=== PATIENT | male | born 1970 | race Caucasian/White ===

== ENCOUNTER 2017-09-19 18:06 | Inpatient (IN) | payer MEDICAID ==
[~2017-09-19] VITALS: Ht 170.2 cm; Wt 77.1 kg
[2017-09-19 18:11] VITALS: BP 184/102
--- NOTE | 2017-09-19 18:17 | NUR ---
PT AMBULATED TO CHAIR C
--- NOTE | 2017-09-19 18:34 | NUR ---
EPIGASTRIC PAIN AND N/V X 3 DAYS. SKIN IS PINK/WARM/DRY; AAOX4 WITH EVEN AND STEADY GAIT; LUNGS CLEAR BL; HR EVEN AND REGULAR; PT DENIES ANY FEVER, CP, SOB, OR COUGH AT THIS TIME; PATIENT STATES PAIN OF 9/10 AT THIS TIME; VSS; ER MD MADE AWARE OF PT STATUS.
--- NOTE | 2017-09-19 19:00 | NUR ---
RECEIVED REPORT FROM MILAN HURLEY. TRANSFER OF CARE AT THIS TIME.
--- NOTE | 2017-09-19 19:53 | NUR ---
Dr. Telles evaluating patient.
[2017-09-19] MEDS ORDERED: ONDANSETRON 4 MG/2 ML VIAL IVP ONE (20:00)
[2017-09-19] MEDS ORDERED: MORPHINE SULFATE 2 MG/ML SYR IVP ONE (20:00)
--- NOTE | 2017-09-19 20:17 | NUR ---
PT TAKEN TO CT
[2017-09-19 20:31] LABS: HEMOGLOBIN 17.5 g/dL (12.0-18.0); MEAN CORPUSCULAR HEMOGLOBIN 29 pg (27-31); MEAN CORPUSCULAR HGB CONC 33 g/dL (33-37); MEAN CORPUSCULAR VOLUME 88 fL (80-94); PLATELET COUNT (AUTO) 228 K/uL (140-450); RED BLOOD CELL COUNT(AUTO) 6.01 MIL/uL (4.20-6.10); RED CELL DISTRIBUTION WIDTH 11.8 % (11.6-13.7); WHITE BLOOD COUNT (AUTO) 20.6 K/uL (4.8-10.8)
[2017-09-19] MEDS ORDERED: ONDANSETRON 4 MG/2 ML VIAL ONE (20:41)
[2017-09-19 20:42] LABS: CARBON DIOXIDE 27.4 mmol/L (21-32); CREATININE 0.9 mg/dL (0.7-1.3); POTASSIUM 4.4 mmol/L (3.5-5.1)
[2017-09-19 20:43] LABS: APPEARANCE,URINE CLEAR (CLEAR); BILIRUBIN,URINE 1+ (NEGATIVE); BLOOD, URINE 1+ (NEGATIVE); COLOR,URINE YELLOW (YELLOW); LEUKOCYTE ESTERASE ,URINE NEGATIVE (NEGATIVE); NITRITE, URINE NEGATIVE (NEGATIVE); UGLUCOSE TRACE (NEGATIVE)
[2017-09-19 20:46] LABS: LYMPHOCYTES % (MANUAL) 2 % (20-46); MONOCYTES % (MANUAL) 8 % (5-12)
[2017-09-19 20:48] LABS: ALBUMIN 4.1 g/dL (3.4-5.0); TOTAL BILIRUBIN 2.4 mg/dL (0.0-1.0)
[2017-09-19 20:53] LABS: RBC,URINE 11-20 (MOD) /HPF (0-5); WBC,URINE 0-5 (RARE) /HPF (0-5)
--- NOTE | 2017-09-19 22:00 | NUR ---
PATIENT RESTING AT THIS TIME. SITTING IN CHAIR.
[2017-09-19] MEDS ORDERED: PIPERACILLIN/TAZOBACTAM 4.5 GM in DEXTROSE 5% 100 ML IV ONE (22:05)
[2017-09-19] MEDS ORDERED: PIPERACILLIN/TAZOBACTAM 2.25 GM VIAL IV ONE ×2 (22:09→22:11)
[2017-09-19] MEDS ORDERED: NACL 0.9% 3,000 ML IV ONE (22:10)
--- NOTE | 2017-09-19 23:11 | NUR ---
PT MOVED TO BED 10
[2017-09-19] MEDS ORDERED: ONDANSETRON 4 MG/2 ML VIAL IVP PRN (23:15)
[2017-09-19] MEDS ORDERED: LORazepam 2 MG/ML VIAL IVP PRN (23:15)
[2017-09-20] VITALS (11 sets, daily range): BP systolic 142–169; BP diastolic 91–100
[2017-09-20] MEDS ORDERED: HYDROmorphone PFS 2 MG/ML SYR ONE (00:04)
[2017-09-20] MEDS ORDERED: HYDROmorphone 1 MG/ML AMP IVP ONE (00:05)
--- NOTE | 2017-09-20 00:10 | NUR ---
PT ARRIVED VIA WHEELCHAIR FROM ER, PT AMBULATED TO BED, TOLERATED WELL, NO DISTRESS NOTED, IV TO L AC 18G SL, PATENT, RECEIVED BEDSIDE REPORT FROM ER NURSE ANNE RN, PT STABLE, INITIAL ASSESSMENT DONE, ALL SAFETY PRECAUTION MET, ORIENTED PT TO ROOM, WILL CONTINUE TO MONITOR.
--- NOTE | 2017-09-20 00:10 | NUR ---
Patient will be admitted to care of DR. FITZGERALD. Admited to M/S. Will go to room 104B. Belongings list completed. Report to MADHURI HURLEY.
[2017-09-20] MEDS: DEXT 5% /NACL 0.9% 1,000 ML IV SCH ×3 (00:20→21:30)
[2017-09-20] MEDS ORDERED: LABETALOL 100 MG/20 ML VIAL IV PRN (00:50)
--- NOTE | 2017-09-20 00:50 | NUR ---
CALLED DR. FITZGERALD REGARDING PT BP 169/99 HR 94, PT STATED THERE IS NO HEADACHE, PT STABLE, STATED TO ORDER LABETALOL 10MG IVP Q6H PRN SBP>150, WILL PUT IN ORDER AND CONTINUE WITH ORDERS.
--- NOTE | 2017-09-20 00:50 | NUR ---
TALKED TO DR. GONZALEZ REGARDING ORDERS THAT WAS ENDORSED BY ER NURSE, STATED TO ORDER APTT AND PTT, TYPE AND SCREEN, ZOSYN 3.375MG Q6H IVPB, AND TO NOT ORDER DILAUDID 1MG Q4H PRN PAIN, AND ZOFRAN 4MG Q6HR PRN N/V BECAUSE DR. FITZGERALD HAD ALREADY PUT IN ORDERS FOR PAIN MEDICATION AND ZOFRAN. WILL PUT IN DR'S ORDER AND CONTINUE WITH ORDERS.
--- NOTE | 2017-09-20 01:20 | NUR ---
CALLED CASSANDRA ARCHITECT REGARDING LABETALOL NOT AVAILABLE ON THE UNIT, CASSANDRA ARCHITECT STATED UNDERSTANDING AND WILL BRING MEDICATION TO THE FLOOR.
[2017-09-20] MEDS ORDERED: LABETALOL 100 MG/20 ML VIAL ONE (01:36)
--- NOTE | 2017-09-20 01:44 | NUR ---
LABETALOL GIVEN PER MD ORDER, PT TOLERATED WELL, WILL RECHECK PT BP IN ONE HOUR. PT RESTING, NO DISTRESS NOTED, CALL LIGHT WITHIN REACH, WILL CONTINUE TO MONITOR.
[2017-09-20 01:48] LABS: PROTHROMBIN TIME 11.8 secs (10.8-13.4)
--- NOTE | 2017-09-20 02:44 | NUR ---
RECHECKED PT BP, PT BP 137/101 HR OF 83, PT STABLE, NO DISTRESS NOTED, CALL LIGHT WITHIN REACH, WILL CONTINUE TO MONITOR.
[2017-09-20] MEDS ORDERED: INFLUENZA VIRUS VACCINE QUAD 0.5 ML SYR IMVAC PRN (03:40)
[2017-09-20] MEDS ORDERED: PIPERACILLIN/TAZOBACTAM 2.25 GM in DEXTROSE 5% 50 ML IV SCH (05:00)
[2017-09-20] MEDS ORDERED: PIPERACILLIN/TAZOBACTAM 3.375 GM VIAL IV ONE (05:24)
[2017-09-20] MEDS: PIPER/TAZO 3.375GM/D5W PREMIX 50 ML IV SCH ×3 (05:37→18:00)
--- NOTE | 2017-09-20 05:37 | NUR ---
DUE MEDICATION GIVEN, PT TOLERATED WELL NO DISTRESS NOTED, CALL LIGHT WITHIN REACH, WILL CONTINUE TO MONITOR.
--- NOTE | 2017-09-20 06:47 | NUR ---
PATIENT HAS BEEN SCREENED AND CATEGORIZED HIGH NUTRITION RISK. PATIENT WILL BE SEEN WITHIN 1-2 DAYS OF ADMISSION. 09/20/17-09/21/17 JAYDEN DE GUZMAN MS, RDN
--- NOTE | 2017-09-20 07:10 | NUR ---
ENDORSED PLAN OF CARE TO DAY SHIFT NURSE JUAN R HURLEY, PT STABLE, NO DISTRESS NOTED, CALL LIGHT WITHIN REACH.
--- NOTE | 2017-09-20 07:12 | NUR ---
ASSUMED CONTINUITY OF CARE. NO SIGNS AND SYMPTOMS OF ACUTE DISTRESS NOTED. INITIAL ASSESSMENT DONE. KEEP COMFORTABLE ON BED. EXPLAINED DIAGNOSIS, PLAN OF CARE, PAIN MANAGEMENT TEACHING, USE OF CALL LIGHT/BED/TV/BATHROOM. VERBALIZED UNDERSTANDING. CALL LIGHT WITHIN REACH.
[2017-09-20 07:18] LABS: HEMOGLOBIN 16.1 g/dL (12.0-18.0); MEAN CORPUSCULAR HEMOGLOBIN 30 pg (27-31); MEAN CORPUSCULAR HGB CONC 34 g/dL (33-37); MEAN CORPUSCULAR VOLUME 89 fL (80-94); PLATELET COUNT (AUTO) 192 K/uL (140-450); RED BLOOD CELL COUNT(AUTO) 5.41 MIL/uL (4.20-6.10); RED CELL DISTRIBUTION WIDTH 12.3 % (11.6-13.7); WHITE BLOOD COUNT (AUTO) 18.3 K/uL (4.8-10.8)
--- NOTE | 2017-09-20 08:00 | NUR ---
Patient's Plan of Care was discussed and reviewed with SURVEILLANCE AGENT: KALA DE LA GARZA
[2017-09-20 08:11] LABS: LYMPHOCYTES % (MANUAL) 7 % (20-46); MONOCYTES % (MANUAL) 6 % (5-12)
[2017-09-20] MEDS: MORPHINE SULFATE 2 MG/ML SYR IVP PRN (08:13)
[2017-09-20 09:03] LABS: ALBUMIN 3.1 g/dL (3.4-5.0); CREATININE 0.9 mg/dL (0.7-1.3); POTASSIUM 4.5 mmol/L (3.5-5.1); TOTAL BILIRUBIN 2.3 mg/dL (0.0-1.0)
[2017-09-20 09:22] LABS: ANION GAP 13.7 (8-16); CARBON DIOXIDE 25.8 mmol/L (21-32)
--- NOTE | 2017-09-20 09:54 | NUR ---
DR. GONZALEZ AND DR. FAUSTIN CAME AND SPOKE TO PT. AT BEDSIDE.
--- NOTE | 2017-09-20 10:10 | NUR ---
US TECH CAME FOR PT. PROCEDURE. PT. RESTING ON BED.
--- NOTE | 2017-09-20 11:19 | NUR ---
09/20/17 RD INITIAL ASSESSMENT COMPLETED PLEASE REFER TO NUTRITION ASSESSMENT UNDER CARE ACTIVITY FOR ESTIMATED NUTRITIONAL NEEDS. RD RECOMMENDATIONS: 1. CONTINUE NPO MEDICALLY APPROPRIATE PER MD DISCRETION. 2. IF/WHEN MEDICALLY APPROPRIATE PER MD DISCRETION, CONSIDER INITIATING CARDIAC DIET. 3. CONSULT RDN PRN. 4. RD WILL F/U 2-3 DAYS; HIGH RISK. JAYDEN DE GUZMAN, MS, RDN
[2017-09-20] MEDS: LABETALOL 100 MG/20 ML VIAL IV PRN ×2 (12:27→21:00)
[2017-09-20] MEDS ORDERED: MIDAZOLAM 2 MG/2 ML VIAL ONE (16:26)
[2017-09-20] MEDS ORDERED: fentaNYL 0.05 MG/ML VIAL ONE (16:26)
[2017-09-20] MEDS ORDERED: MEPERIDINE 50 MG/ML SYR ONE (16:27)
[2017-09-20] MEDS ORDERED: LACTATED RINGERS 1,000 ML IV SCH (16:29)
[2017-09-20] MEDS ORDERED: diphenhydrAMINE 50 MG/ML VIAL IVP PRN (16:30)
[2017-09-20] MEDS ORDERED: ONDANSETRON 4 MG/2 ML VIAL IVP PRN (16:30)
[2017-09-20] MEDS ORDERED: HYDROmorphone PFS 2 MG/ML SYR IVP PRN (16:30)
[2017-09-20] MEDS ORDERED: MEPERIDINE 25 MG/ML SYR IVP PRN (16:30)
--- NOTE | 2017-09-20 16:32 | NUR ---
OR NURSE -TAMMY CAME AND SHUTTLE FINAL INSPECTOR PT. FOR PROCEDURE. OR NURSE -TAMMY EXPLAINED TO PT. AND PT. FAMILY MEMBERS ABOUT PROCEDURE TO BE DONE TO PT.. WENT TO OR VIA GURNEY. IN STABLE CONDITION.
[2017-09-20] MEDS ORDERED: PROPOFOL 200 MG/20 ML VIAL IV ONE (16:40)
[2017-09-20] MEDS ORDERED: DEXAMETHASONE 4 MG/ML VIAL ONE (16:40)
[2017-09-20] MEDS ORDERED: SUCCINYLCHOLINE CHLORIDE 200 MG/10 ML VIAL IVP ONE (16:40)
[2017-09-20] MEDS ORDERED: SEVOFLURANE 250 ML BTL INH ONE (16:40)
[2017-09-20] MEDS ORDERED: ROCURONIUM 50 MG/5 ML VIAL IV ONE (16:40)
[2017-09-20] MEDS ORDERED: BUPIVACAINE-MPF/EPI 0.5% 30 ML VIAL INJ ONE (16:44)
[2017-09-20] MEDS ORDERED: THROMBIN KIT 20 MU VIAL TP ONE (18:43)
--- NOTE | 2017-09-20 19:05 | NUR ---
REPORT GIVEN TO MADHURI PHAN THAT PT. STILL IN O.R. FOR PROCEDURE THAT WAS DONE BY DR. GONZALEZ.
--- NOTE | 2017-09-20 19:06 | NUR ---
RECEIVED REPORT FROM DAY SHIFT NURSE JUAN R GROVER PT CURRENTLY IN THE OR FOR PROCEDURE.
--- NOTE | 2017-09-20 20:35 | NUR ---
PT ARRIVED ON UNIT VIA BED FROM O.R. RECEIVED REPORT FROM JESUS HURLEY. PT STABLE, NO DISTRESS NOTED, ON ROOM AIR NO SOB, IV TO L AC 18 G RUNNING LR, INFUSING WELL, INITIAL ASSESSMENT DONE, ALL SAFETY PRECAUTION MET, WILL CONTINUE TO MONITOR.
[2017-09-20 20:38] LABS: HEMATOCRIT 45.2 % (36-52); HEMOGLOBIN 15.2 g/dL (12.0-18.0); MEAN CORPUSCULAR HEMOGLOBIN 30 pg (27-31); MEAN CORPUSCULAR HGB CONC 34 g/dL (33-37); MEAN CORPUSCULAR VOLUME 88 fL (80-94); PLATELET COUNT (AUTO) 184 K/uL (140-450); RED BLOOD CELL COUNT(AUTO) 5.15 MIL/uL (4.20-6.10); RED CELL DISTRIBUTION WIDTH 11.8 % (11.6-13.7)
[2017-09-20 20:49] LABS: ANION GAP 11.7 (8-16); CARBON DIOXIDE 24.7 mmol/L (21-32); CREATININE 0.9 mg/dL (0.7-1.3); POTASSIUM 4.4 mmol/L (3.5-5.1)
[2017-09-20 20:54] LABS: ALBUMIN 2.6 g/dL (3.4-5.0); TOTAL BILIRUBIN 2.8 mg/dL (0.0-1.0)
[2017-09-20 21:00] LABS: WHITE BLOOD COUNT (AUTO) 18.8 K/uL (4.8-10.8)
--- NOTE | 2017-09-20 21:00 | NUR ---
PT BP 166/97 HR 91 LABETALOL ORDERED GIVEN, PT TOLERATED WELL, WILL RECHECK PT BP IN 1 HOUR. Addendum: 09/20/17 at 2250 by Abena Byers RN PT ASYMPTOMATIC, NO COMPLAIN OF HEADACHE, PT SLEEPING, EASY TO AROUSE.
[2017-09-20 21:02] LABS: LYMPHOCYTES % (MANUAL) 2 % (20-46); MONOCYTES % (MANUAL) 3 % (5-12)
--- NOTE | 2017-09-20 22:00 | NUR ---
RECHECKED PT BP 158/95 HR 89, PT RESTING ASYMPTOMATIC, NO DISTRESS NOTED, STABLE, CALL LIGHT WITHIN REACH, WILL CONTINUE TO MONITOR.
--- NOTE | 2017-09-20 22:23 | NUR ---
DR. GONZALEZ CALLED REGARDING PT UPDATE. Addendum: 09/21/17 at 0703 by Abena Byers RN STATED NO CHANGE IN ORDERS.
--- NOTE | 2017-09-20 22:55 | NUR ---
RECHECKED PT BP, BP NOW 142/91 HR 92 PT STABLE, NO DISTRESS NOTED, CALL LIGHT WITHIN REACH, WILL CONTINUE TO MONITOR.
[2017-09-21] MEDS: PIPER/TAZO 3.375GM/D5W PREMIX 50 ML IV SCH ×5 (00:16→23:12)
--- NOTE | 2017-09-21 00:16 | NUR ---
DUE MEDICATION GIVEN, PT TOLERATED WELL, NO DISTRESS NOTED, CALL LIGHT WITHIN REACH, WILL CONTINUE TO MONITOR.
[2017-09-21] MEDS: MORPHINE SULFATE 4 MG/ML SYR IVP PRN ×3 (01:34→09:48)
--- NOTE | 2017-09-21 01:34 | NUR ---
PT C/O PAIN 10/10 ON THE INCISION SITE, PAIN MEDICATION GIVEN, PT TOLERATED WELL, NO DISTRESS NOTED, CALL LIGHT WITHIN REACH, WILL CONTINUE TO MONITOR.
--- NOTE | 2017-09-21 03:15 | NUR ---
CHECKED ON PT, PT SLEEPING, NO DISTRESS NOTED, CALL LIGHT WITHIN REACH, WILL CONTINUE TO MONITOR
--- NOTE | 2017-09-21 05:10 | NUR ---
JANE CATH TAKEN OUT, PT TOLERATED WELL, NO DISTRESS NOTED, CALL LIGHT WITHIN REACH, WILL CONTINUE TO MONITOR.
[2017-09-21] MEDS: DEXT 5% /NACL 0.9% 1,000 ML IV SCH ×2 (05:15→09:49)
--- NOTE | 2017-09-21 05:27 | NUR ---
DUE MEDICATION GIVEN, PT TOLERATED WLL, NO DISTRESS NOTED, CALL LIGHT WITHIN REACH, WILL CONTINUE OT MONITOR.
[2017-09-21 06:56] LABS: HEMATOCRIT 43.1 % (36-52); HEMOGLOBIN 14.3 g/dL (12.0-18.0); MEAN CORPUSCULAR HEMOGLOBIN 29 pg (27-31); MEAN CORPUSCULAR HGB CONC 33 g/dL (33-37); MEAN CORPUSCULAR VOLUME 88 fL (80-94); PLATELET COUNT (AUTO) 195 K/uL (140-450); RED CELL DISTRIBUTION WIDTH 12.4 % (11.6-13.7); WHITE BLOOD COUNT (AUTO) 16.7 K/uL (4.8-10.8)
--- NOTE | 2017-09-21 07:10 | NUR ---
RECEIVED PT REPORT AT BEDSIDE, PT AWAKE AND ALERT AND ORIENTED PT STATED HAD TROUBLE SLEEPING AND HAS PAIN IN INCISION FROM OPEN CHOLECYSTEMY, ABD INCISIONS NOTED CLEAN DRY AND INTACT DRESSING. COLT FLANNERY IN PLACE 10ML SANGUINOUS DRAINAIGE NOTED, IV LINE ON LAC INTACT W IVF INFUSING WELL, BED LOW POSITION, CALL LIGHT W/IN REACH, WILL CONTINUE TO MONITOR
--- NOTE | 2017-09-21 07:30 | NUR ---
ENDORSED PLAN OF CARE TO DAY SHIFT NURSE TRINIDAD RN, PT STABLE, NO DISTRESS NOTED, CALL LIGHT WITHIN REACH.
[2017-09-21 07:33] LABS: LYMPHOCYTES % (MANUAL) 4 % (20-46); MONOCYTES % (MANUAL) 10 % (5-12)
[2017-09-21 07:49] LABS: ALBUMIN 2.5 g/dL (3.4-5.0); ANION GAP 11.2 (8-16); CARBON DIOXIDE 26.2 mmol/L (21-32); POTASSIUM 4.4 mmol/L (3.5-5.1); TOTAL BILIRUBIN 1.8 mg/dL (0.0-1.0)
[2017-09-21 08:00] VITALS: BP 165/106
[2017-09-21] MEDS: LABETALOL 100 MG/20 ML VIAL IV PRN (09:15)
[2017-09-21] MEDS ORDERED: fentaNYL 0.05 MG/ML VIAL ONE (09:32)
[2017-09-21] MEDS ORDERED: MIDAZOLAM 2 MG/2 ML VIAL ONE (09:33)
[2017-09-21] MEDS ORDERED: diphenhydrAMINE 50 MG/ML VIAL ONE (09:33)
--- NOTE | 2017-09-21 10:00 | NUR ---
PT VOIDED WITH URINAL 250ML TYRONE COLORED URINE NOTED
--- NOTE | 2017-09-21 10:20 | NUR ---
PT SEEN BY DR MARTINEZ
[2017-09-21] MEDS: MORPHINE SULFATE 2 MG/ML SYR IVP PRN (12:34)
--- NOTE | 2017-09-21 14:49 | NUR ---
PER PT AMBULATED AROUND THE UNIT. PATIENT ABLE TO AMBULATE BY HIMSELF SLOWLY, WILL COUNTINUE WITH PLAN OF CARE.
[2017-09-21 16:00] VITALS: BP 155/98
[2017-09-21] MEDS: HYDROcodone/APAP 5/325 MG 1 TAB TAB PO PRN (17:15)
--- NOTE | 2017-09-21 18:46 | NUR ---
PT WAS SEEN BY DR GONZALEZ. PER DR GONZALEZ KEEP PT NPO AFTER MIDNIGHT. HIDA SCAN TOMORROW. 55 ML SANGUINOUS DRAINAGE EMPTY FROM COLT DRAIN.
--- NOTE | 2017-09-21 18:58 | NUR ---
SPOKE WITH [facility] [place] SHE IS UNABLE TO DO THE HIDA SCAN IN THE MORNING NOTIFIED DR GONZALEZ THAT HIDA SCAN WILL BE DONE AT 3 PM HE STATED WILL BE OK. PT WILL BE NPO AND NO OPIATES UNTIL 3 PM RN AWRE OF IT
--- NOTE | 2017-09-21 19:40 | NUR ---
PT REPORT GIVEN AT BEDSIDE PT IN STABLE CONDITION
--- NOTE | 2017-09-21 19:40 | NUR ---
PATIENT REPORT RECEIVED FROM MORNING NURSE AT BEDSIDE. PATIENT IS AOX4, MONGOLIAN SPEAKING. PATIENT'S FAMILY PRESENT AT BEDSIDE. NO SIGNS AND SYMPTOMS OF DISTRESS NOTED. IV SITE NOTED ON LEFT AC, IVF INFUSING WELL. ABDOMINAL DRESSINGS NOTED, DRY AND INTACT. COLT DRAIN ALSO NOTED, WITH NO DRAINAGE AT THIS TIME. BED IN LOWEST POSITION, SIDE RAILS UP AND CALL LIGHT WITHIN REACH. WILL CONTINUE TO MONITOR.
[2017-09-21] MEDS ORDERED: IBUPROFEN 600 MG TAB PO PRN (21:55)
[2017-09-22] VITALS: BP 154/96
[2017-09-22] MEDS: LABETALOL 100 MG/20 ML VIAL IV PRN
--- NOTE | 2017-09-22 | NUR ---
VITAL SIGNS CHECKED. BLOOD PRESSURE ELEVATED. WILL MEDICATE ORDERED.
[2017-09-22] MEDS: DEXT 5% /NACL 0.9% 1,000 ML IV SCH ×2 (01:15→11:28)
--- NOTE | 2017-09-22 01:20 | NUR ---
PATIENT IS ASLEEP. NO SIGNS AND SYMPTOMS OF DISTRESS NOTED. BREATHING EVEN AND UNLABORED. BED IN LOWEST POSITION, SIDE RAILS UP AND CALL LIGHT WITHIN REACH. WILL CONTINUE TO MONITOR.
--- NOTE | 2017-09-22 02:53 | NUR ---
CHECKED ON PATIENT. PATIENT IS ASLEEP. NO SIGNS AND SYMPTOMS OF DISTRESS NOTED. BREATHING EVEN AND UNLABORED. WILL CONTINUE TO MONITOR.
[2017-09-22] MEDS: PIPER/TAZO 3.375GM/D5W PREMIX 50 ML IV SCH ×3 (05:00→18:00)
--- NOTE | 2017-09-22 06:00 | NUR ---
DRAINED COLT DRAIN. OBTAINED 20ML OF SEROSANGUINOUS DRAINAGE.
[2017-09-22 07:17] LABS: BASOPHILS # (AUTO) 0.1 K/uL (0.00-0.22); BASOPHILS % (AUTO) 0.8 % (0.0-2.0); EOSINOPHILS # (AUTO) 0.1 K/uL (0-0.4); EOSINOPHILS % (AUTO) 1.3 % (0.0-4.0); HEMATOCRIT 39.8 % (36-52); HEMOGLOBIN 13.3 g/dL (12.0-18.0); LYMPHOCYTES # (AUTO) 0.7 K/uL (2.0-11.5); LYMPHOCYTES % (AUTO) 6.4 % (20.5-51.1); MEAN CORPUSCULAR HEMOGLOBIN 30 pg (27-31); MEAN CORPUSCULAR HGB CONC 33 g/dL (33-37); MEAN CORPUSCULAR VOLUME 89 fL (80-94); MONOCYTES # (AUTO) 0.7 K/uL (0.8-1.0); MONOCYTES % (AUTO) 6.7 % (1.7-9.3); NEUTROPHILS # (AUTO) 8.9 K/uL (1.8-7.7); NEUTROPHILS % (AUTO) 84.8 % (42.2-75.2); PLATELET COUNT (AUTO) 217 K/uL (140-450); RED BLOOD CELL COUNT(AUTO) 4.46 MIL/uL (4.20-6.10); RED CELL DISTRIBUTION WIDTH 11.9 % (11.6-13.7); WHITE BLOOD COUNT (AUTO) 10.5 K/uL (4.8-10.8)
--- NOTE | 2017-09-22 07:20 | NUR ---
RECEIVED PATIENT REPORT. PATIENT AWAKE AND ALERT. NO S/S OF DISTRESS. PATIENT ON ROOM AIR. NO C/O PAIN AT THIS TIME. ABD WOUND INCISIONS COVERED WITH CLEAN DRESSING. COLT DRAIN IN PLACE 10 ML SANGUINOUS DRAINAGE NOTED. PATIENT NPO FOR HIDA SCAN TODAY. BED LOWERED WITH CALL LIGHT WITHIN REACH. WILL CONTINUE TO MONITOR
--- NOTE | 2017-09-22 07:20 | NUR ---
PATIENT REPORT GIVEN TO MORNING NURSE AT BEDSIDE FOR CONTINUITY OF CARE. PATIENT IS IN STABLE CONDITION
[2017-09-22 07:26] LABS: ALBUMIN 2.3 g/dL (3.4-5.0); ANION GAP 9.4 (8-16); CARBON DIOXIDE 29.3 mmol/L (21-32); CREATININE 0.8 mg/dL (0.7-1.3); POTASSIUM 4.7 mmol/L (3.5-5.1); TOTAL BILIRUBIN 1.2 mg/dL (0.0-1.0)
[2017-09-22 08:00] VITALS: BP 148/97
--- NOTE | 2017-09-22 10:32 | NUR ---
WOUND CARE EVALUATION NOTE: REASON FOR EVALUATION : SURGICAL WOUND COMPLETE SKIN ASSESSMENT DONE ON THIS 47 Y/O MALE PATIENT FROM HOME TO [facility], WITH INITIAL DIAGNOSIS OF ABDOMINAL PAIN. NO REPORTED PAST MEDICAL HISTORY, ALL ABOVE INFORMATION WAS OBTAINED FROM THE ADMISSION H&P. LABS ARE WBC 10.5, H/H 13.3/29.8, GLUCOSE 97 AND ALBUMIN 2.3. BLOOD CULTURE NO GROWTH AND MRSA NEGATIVE PATIENT IS AAOX4. KHMER SPEAKING. SKIN WARM TO TOUCH WNL, SKIN TURGOR GOOD. CAPILLARY REFILLED <3 SEC. TOENAILS ARE SHORT AND THICKENED, HAIR GROWTH, BILATERAL LE, DORSAL PEDAL PULSES PRESENT. PT. ABLE TO AMBULATE TO BR. INITIAL PLAN OF CARE DISCUSSED WITH PT. PT ABLE TO VERBALIZE UNDERSTANDING. ANU HURLEY TRANSLATE IN KHMER. INTEGUMENTARY: -BILATERAL LOWER EXTREMITIES -CHRONIC PSORIASIS -OPEN CHOLECYSTECTOMY SURGICAL WOUNDS, NO S/S OF INFECTION, NO WOUND DEHISCENCE NOTICE AT THIS TIME. RUQ 23CM , MID LOWER ABDOMINAL WITH 4 CM AND LUQ 4 CM . ALL [place]LDON IN PLACE , SKIN DRY AND CLEAN, ASH-WOUND DRY SKIN INTACT. -RLQ ABDOMINAL COLT DRAINAGE SITE WITH SUTURE IN PLACE, APPROXIMATELY 15 ML SANGUINOUS DRAINAGE RECOMMENDATIONS: -CLEANSE ABDOMINAL SURGICAL WOUNDS WITH NS, PAT DRY, APPLY DRY NONADHESIVE DRESSING PRN IF SOILING -PT. ABLE TO TURN AND REPOSITION, INSTRUCT PT TO SHIFT WEIGHT Q2H -ASSESS AND MONITOR COLT DRAINAGE Q SHIFT, PLEASE PAY ATTENTION TO DRAINAGE AMOUNT AND COLOR -OFFLOAD BILATERAL HEELS BY PLACING PILLOWS UNDER CALVES AT ALL TIMES, UNLESS OTHERWISE CONTRAINDICATED -PRESSURE REDISTRIBUTION SURFACE THERAPY -KEEP SKIN CLEAN AND DRY AT ALL TIMES. -APPLY HYDRAGUARD TO BLE BIDWC AND LEAVE IT OPEN TO AIR RECOMMENDATIONS DISCUSSED WITH PRIMARY RN PLEASE CONTACT WOUND CARE NURSE FOR ANY CONCERNS, QUESTIONS AND CHANGES IN SKIN CONDITION.
[2017-09-22] MEDS ORDERED: NACL 0.9% IRR 250 ML BOTTLE IR PRN (11:05)
[2017-09-22] MEDS ORDERED: HYDRAGUARD CREAM TP SCH (13:00)
--- NOTE | 2017-09-22 13:24 | NUR ---
PATIENT LEFT THE UNIT FOR HIDA SCAN
[2017-09-22] MEDS: HYDROcodone/APAP 5/325 MG 1 TAB TAB PO PRN (14:55)
[2017-09-22 15:05] LABS: BASOPHILS # (AUTO) 0.1 K/uL (0.00-0.22); BASOPHILS % (AUTO) 1.3 % (0.0-2.0); EOSINOPHILS # (AUTO) 0.1 K/uL (0-0.4); EOSINOPHILS % (AUTO) 0.9 % (0.0-4.0); HEMOGLOBIN 14.1 g/dL (12.0-18.0); LYMPHOCYTES # (AUTO) 1.3 K/uL (2.0-11.5); LYMPHOCYTES % (AUTO) 12.3 % (20.5-51.1); MEAN CORPUSCULAR HEMOGLOBIN 30 pg (27-31); MEAN CORPUSCULAR HGB CONC 34 g/dL (33-37); MEAN CORPUSCULAR VOLUME 89 fL (80-94); MONOCYTES # (AUTO) 0.7 K/uL (0.8-1.0); MONOCYTES % (AUTO) 6.6 % (1.7-9.3); NEUTROPHILS # (AUTO) 8.1 K/uL (1.8-7.7); NEUTROPHILS % (AUTO) 78.9 % (42.2-75.2); PLATELET COUNT (AUTO) 258 K/uL (140-450); RED BLOOD CELL COUNT(AUTO) 4.74 MIL/uL (4.20-6.10); WHITE BLOOD COUNT (AUTO) 10.3 K/uL (4.8-10.8)
[2017-09-22 15:20] LABS: ANION GAP 12.3 (8-16); CARBON DIOXIDE 29.1 mmol/L (21-32); CREATININE 0.9 mg/dL (0.7-1.3); POTASSIUM 4.4 mmol/L (3.5-5.1)
[2017-09-22 15:26] LABS: ALBUMIN 2.7 g/dL (3.4-5.0); TOTAL BILIRUBIN 1.4 mg/dL (0.0-1.0)
--- NOTE | 2017-09-22 15:59 | NUR ---
MADE DR GONZALEZ AWARE OF HIDA SCAN RESULTS. PER DR GONZALEZ, PATIENT IS OK TO BE DISCHARGED FROM HIS STANDPOINT
[2017-09-22 16:00] VITALS: BP 157/102
[2017-09-22] MEDS ORDERED: MAGNESIUM HYDROXIDE 2400 MG/30 ML UDC PO SCH (16:30)
--- NOTE | 2017-09-22 18:00 | NUR ---
PATIENT DISCHARGED TO HOME. DISCHARGE INSTRUCTIONS GIVEN. PATIENT VERBALIZED UNDERSTANDING. IV LINE DISCONTINUED. COLT DRAIN DISCONTINUED. 25ML SANGUINOUS OUTPUT NOTED. DR GONZALEZ AWARE. PATIENT LEFT WITH ALL HIS BELONGINGS AND DISCHARGE PAPERS. PATIENT LEFT IN STABLE CONDITION
== END 2017-09-22 18:00 | disposition home or self-care (01) | DRG 262 ==
LOC: MED 18:06 → MTU 23:19
PROVIDERS: ADMIT Preventive Medicine Preventive Medicine/Occupational Environmental Medicine; ATTEND Preventive Medicine Preventive Medicine/Occupational Environmental Medicine
PROC: 0FJ44ZZ Inspection of Gallbladder, Percutaneous Endoscopic Approach (ICD-10-PCS; 2017-09-20)
PROC: 0DNU4ZZ Release Omentum, Percutaneous Endoscopic Approach (ICD-10-PCS; 2017-09-20)
PROC: 0FT40ZZ Resection of Gallbladder, Open Approach (ICD-10-PCS; principal; 2017-09-20 16:30)
DX: K80.00 Calculus of gallbladder with acute cholecystitis without obstruction (principal); E43 Unspecified severe protein-calorie malnutrition; R65.10 Systemic inflammatory response syndrome (SIRS) of non-infectious origin without acute organ dysfunction; E88.09 Other disorders of plasma-protein metabolism, not elsewhere classified; E86.0 Dehydration; D72.825 Bandemia; R73.9 Hyperglycemia, unspecified; I10 Essential (primary) hypertension; R74.0 Nonspecific elevation of levels of transaminase and lactic acid dehydrogenase [LDH]; L40.9 Psoriasis, unspecified; K66.0 Peritoneal adhesions (postprocedural) (postinfection); Z53.31 Laparoscopic surgical procedure converted to open procedure; Z68.26 Body mass index [BMI] 26.0-26.9, adult
CPT/HCPCS: 36415; 76705; 78445; 80053; 81001; 82150; 83605; 83615; 83690; 85025; 85610; 85651; 85730; 86140; 86886; 86900; 86901; 87040; 87081; 96374; 96375; 99285; J0330; J1100; J1170; J1200; J2175; J2250; J2270; J2405; J2543; J2704; J3010; J3490; J7030; J7042; J7060; J7120; Q0092

== ENCOUNTER 2019-05-06 17:23 | Emergency (ER) | payer MEDICAID ==
[~2019-05-06] VITALS: Ht 167.6 cm; Wt 86.6 kg
[2019-05-06 17:30] VITALS: BP 159/100
[2019-05-06 17:57] LABS: BASOPHILS # (AUTO) 0.1 K/uL (0.00-0.22); BASOPHILS % (AUTO) 1.3 % (0.0-2.0); EOSINOPHILS % (AUTO) 0.7 % (0.0-4.0); HEMOGLOBIN 16.6 g/dL (12.0-18.0); LYMPHOCYTES # (AUTO) 1.8 K/uL (2.0-11.5); LYMPHOCYTES % (AUTO) 35.9 % (20.5-51.1); MEAN CORPUSCULAR HEMOGLOBIN 29 pg (27-31); MEAN CORPUSCULAR HGB CONC 34 g/dL (33-37); MEAN CORPUSCULAR VOLUME 87.1 fL (80-94); MONOCYTES # (AUTO) 0.5 K/uL (0.8-1.0); MONOCYTES % (AUTO) 10.4 % (1.7-9.3); NEUTROPHILS # (AUTO) 2.6 K/uL (1.8-7.7); NEUTROPHILS % (AUTO) 51.7 % (42.2-75.2); PLATELET COUNT (AUTO) 182 K/uL (140-450); RED BLOOD CELL COUNT(AUTO) 5.63 MIL/uL (4.20-6.10); WHITE BLOOD COUNT (AUTO) 5.1 K/uL (4.8-10.8)
[2019-05-06 18:07] LABS: CREATININE 0.8 mg/dL (0.7-1.3)
[2019-05-06 18:13] LABS: ALBUMIN 4.1 g/dL (3.4-5.0); TOTAL BILIRUBIN 1.1 mg/dL (0.0-1.0)
--- NOTE | 2019-05-06 18:16 | NUR ---
PT TAKEN TO BED 2.
--- NOTE | 2019-05-06 18:30 | NUR ---
49 Y/O MALE C/O CHEST PAIN RADIATING TO R ARM X2 WEEKS. DENIES N/V. PT DIASTOLIC BP IS ELEVATED 159/100, PER PT HE RAN OUT OF MEDICATION 5-6 MONTHS AGO. SKIN WARM/DRY. A/OX 4 FOLLOWS COMMANDS; BREATHING UNLABORED AND SYMMETRICAL. ERMD MADE AWARE OF STATUS. SIDE RAILSX1. PLACED ON MONITOR. HX: HTN RX: UNKNOWN
[2019-05-06 19:45] VITALS: BP 143/98
== END 2019-05-06 19:45 | disposition home or self-care (01) ==
LOC: MED 17:23
DX: R07.89 Other chest pain (principal)
CPT/HCPCS: 36415; 71045; 80053; 84484; 85025; 93005; 99284

== ENCOUNTER 2020-12-25 00:14 | Emergency (ER) | payer SELFPAY ==
[~2020-12-25] VITALS: Ht 170.2 cm; Wt 72.6 kg
[2020-12-25] MEDS ORDERED: ONDANSETRON 4 MG/2 ML VIAL IVP ONE (01:45)
[2020-12-25] MEDS ORDERED: KETOROLAC 30 MG/ML VIAL IVP ONE (01:45)
[2020-12-25 01:58] LABS: BASOPHILS % (AUTO) 0.2 % (0.0-2.0); EOSINOPHILS % (AUTO) 0.1 % (0.0-4.0); HEMATOCRIT 49.3 % (36-52); HEMOGLOBIN 16.8 g/dL (12.0-18.0); LYMPHOCYTES # (AUTO) 1.2 K/uL (2.0-11.5); LYMPHOCYTES % (AUTO) 10.8 % (20.5-51.1); MEAN CORPUSCULAR HEMOGLOBIN 30 pg (27-31); MEAN CORPUSCULAR HGB CONC 34 g/dL (33-37); MEAN CORPUSCULAR VOLUME 87.6 fL (80-94); MONOCYTES # (AUTO) 0.4 K/uL (0.8-1.0); MONOCYTES % (AUTO) 3.3 % (1.7-9.3); NEUTROPHILS # (AUTO) 9.9 K/uL (1.8-7.7); NEUTROPHILS % (AUTO) 85.6 % (42.2-75.2); PLATELET COUNT (AUTO) 199 K/uL (140-450); RED BLOOD CELL COUNT(AUTO) 5.63 MIL/uL (4.20-6.10); RED CELL DISTRIBUTION WIDTH 13.6 % (11.6-13.7); WHITE BLOOD COUNT (AUTO) 11.6 K/uL (4.8-10.8)
[2020-12-25 02:09] LABS: ANION GAP 14.2 (8-16); CARBON DIOXIDE 26.6 mmol/L (21-32); CREATININE 1.5 mg/dL (0.6-1.3); POTASSIUM 3.8 mmol/L (3.5-5.1)
[2020-12-25 02:14] LABS: ALBUMIN 4.6 g/dL (3.4-5.0); TOTAL BILIRUBIN 0.9 mg/dL (0.0-1.0)
[2020-12-25] MEDS: NACL 0.9% 1,000 ML IV SCH ×2 (02:20→02:21)
[2020-12-25] MEDS ORDERED: ACET-8386 PO (04:25)
[2020-12-25] MEDS ORDERED: ONDA8TAB87 PO (04:25)
[2020-12-25] MEDS ORDERED: TAMS0.4C96 PO (04:25)
[2020-12-25] MEDS ORDERED: IBUP-2213 PO (04:25)
[2020-12-25 04:45] VITALS: BP 157/87
== END 2020-12-25 04:45 | disposition home or self-care (01) ==
LOC: MED 00:14
DX: N20.0 Calculus of kidney (principal); I10 Essential (primary) hypertension
CPT/HCPCS: 36415; 74176; 80053; 81002; 83690; 85025; 96361; 96374; 96375; 99285; J1885; J2405; J7030